=== PATIENT | male | born 1980 | race Hispanic/Latino ===

== ENCOUNTER 2018-12-06 06:44 | Observation (INO) | payer MEDICAID, OTHER ==
[~2018-12-06] VITALS: Ht 170.2 cm; Wt 95.2 kg
--- NOTE | 2018-12-06 08:30 | NUR ---
PT ARRIVED TO FLOOR VIA DIRRECT ADMIT IN WHEELCHAIR. 1 GAURD AT SIDE. [address] IVSTARTED IN RIGHT UPPER ARM AND LR INFUSING AT 125ML/HR. PT REPORTS PAIN 02/22. ORIENTED TO ROOM AND CALL LIGHT. VITAL SIGNS TAKE AND STABLE. DENIES FURTHER NEEDS. CALL LIGHT IN REACH
[2018-12-06] MEDS ORDERED: ZESTRIL40 MG PO (08:44)
[2018-12-06] MEDS ORDERED: GLUCOPHAGE850 MG PO (08:44)
[2018-12-06] MEDS ORDERED: GLUCOPHAGE500 MG PO (08:45)
--- NOTE | 2018-12-06 11:40 | NUR ---
DR WILLS TO BEDSIDE TO DISCUSS PLAN OF CARE. PT AGREEABLE. LR BOLUS STARTED. 1 GAURD AT BEDSIDE. [address] SCD'S ON.
--- NOTE | 2018-12-06 13:42 | NUR ---
PT REPORTING 7/10 PAIN. PRM PAIN MEDICAITON GIVEN. 1 GAURD AT BEDSIDE. [address] MOUTH SWABS PROVIDED. DENIES FURTHER NEEDS. CALL LIGHT IN REACH.
--- NOTE | 2018-12-06 15:05 | NUR ---
DR WILLS CALLED TO VERIFICATION FOR PT TO TAKE HOME MEDICATIONS. VERBAL TELEPHONE ORDERS TO HOLD METFORMIN, GIVE LISINOPRIL 40MG NO AND DAILY. START BLOOD SUGAR CHECKS Q6H WITH LOW SLIDING SCALE INUSLIN. READ BACK FOR VERIFICATION.
--- NOTE | 2018-12-06 18:14 | NUR ---
DIRRECT ADMIT. PAIN WELL CONTROLLED WITH IV MORPHINE. PAIN IN RIGHT SIDE. LR AT 125 INFUSING. BLOOD SUGARS Q6H. INDEPENDENT IN ROOM WITH GAURD AT BEDSIDE. CLEAR LIQUIDS TIL MIDNIGHT THEN NPO FOR SURGERY TOMORROW. 4 POINT SHACKLES. NO N/V AT THIS TIME.
--- NOTE | 2018-12-06 20:35 | NUR ---
DIRECTOR ORACLE ROUNDING NOTE. PT RESTING IN BED, DENIES QUESTIONS. ASKS FOR MORE JELLO, LET PRIMARY RN KNOW. GUARD AT BEDSIDE. CALL LIGHT IN REACH.
--- NOTE | 2018-12-06 21:30 | NUR ---
PROVIDED PATIENT WITH HS MEDICAITONS, CBG 89 NO INSULIN NEEDED. PROVIDED WITH JELLO AND BROTH. FULL BODY ASSESMENT DONE. CUFF RESTRAINTS ON ALL FOUR EXTREMITIES, SKIN INTACT AND WNL. URINATING WELL, COLOR APPEARS CLEAR DARK YELLOW.
--- NOTE | 2018-12-06 22:38 | NUR ---
Patients VS and I&Os were completed. He requested broth and jello cups. He was satisfied. BS check was 84.
--- NOTE | 2018-12-06 23:00 | NUR ---
ADMINISTERED 2MG IV MORPHINE FOR PAIN 5/10 ON PAIN SCALE. PATIENT ENCOURAGED TO HAVE JELLO NOW, NPO AT MIDNIGHT. PROVIDED PATIENT WITH ICE WATER AND JELLO. PATIENT RESTING BACK IN BED, RESTRAINED WITH HANDCUFFS, SECURITY GAURD AT BEDSIDE, NO CHANGES TO SKIN.
--- NOTE | 2018-12-07 01:59 | NUR ---
CBG [address] WILLS, NEW ORDER FOR 1/2 AMP OF D5 DEXTROSE AND TO CHANGE FLUIDS TO D5LR @ 125 ML/HR. RECHECK CBG IN HALF HOUR.
--- NOTE | 2018-12-07 04:35 | NUR ---
RECHECKED CBG 119, PATIENT NON-SYMPTOMATIC. WAKES EASILY, STATES " I DIDN'T FEEL ANY DIFFERENT WITH BLOOD SUGAR THAT LOW." PAIN WELL CONTROLLED. PATIENT RESTING BACK IN BED. GUARD AT BEDSIDE.
--- NOTE | 2018-12-07 05:42 | NUR ---
PATIENT BLOOD SUGAR TRENDED, LOWEST CBG 68, CALL TO DR. WILLS NEW ORDERS TO FOLLOW. PATIENT RESTING WELL THROUGHOUT NIGHT, PAIN WELL CONTROLLED. HAS BEEN NPO SINCE MIDNIGHT. VOIDING WELL. PLAN FOR SURGERY AT 0900. VS STABLE.
--- NOTE | 2018-12-07 06:20 | NUR ---
VS and I&Os complete.
--- NOTE | 2018-12-07 07:48 | NUR ---
REPORT RECEIVED FROM PROGRAM EVALUATION CONSULTANT RN. PT IN BED WITH EYES CLOSED. 1 GAURD AT BEDSIDE. [address] D5LR @ 125 INFUSING WNL. BLOOD SUGAR CHECKED THIS AM AND WAS 95. CALL LIGHT IN REACH.
--- NOTE | 2018-12-07 08:13 | NUR ---
PATIENT IS IN BED, PATIENT DID THE SURGICAL WIPEDOWN ON HIMSELF AND WAS GIVEN A FRESH GOWN.
--- NOTE | 2018-12-07 08:58 | NUR ---
PT OFF FLOOR TO SURGERY.
--- NOTE | 2018-12-07 11:35 | NUR ---
12/07/18 1135 Krystle Samaniego 1117- PT ARRIVES TO PACU ON 10 L VIA MASK. PT NONRESPONSIVE TO VERBAL STIMULUS . SATS 100%. VSS. BLOOD SUGAR `134 POSTOP. PT HAD GENERAL ANESTHESIA WITH LOCAL INJECTED AT 4 TROCH SITES. DEMARCO DRAIN IN PLACE. 1120- PT RESPONSIVE TO VERBAL STIMULUS AND DENIES APIN. NO NAUSEA. PT TITRATED TO 6 L VIA MASK WITH FOLLOW UP SATS >90%. 1126- PT TITRATED TO RA WITH FOLLOW UP SATS>90%. PT VERBALIZES 8/10 BURNING PAIN IN ABDOMEN BUT FALLS ABCK ASLEEP EASILY. VSS.
--- NOTE | 2018-12-07 12:00 | NUR ---
PT ARRIVED TO FLOOR VIA STRETCHER. 1 GAURD AT SIDE., [address] PT OOB TO VOID. DEMARCO SITE DRESSING SATURATED. CHANGED GAUZE AND TAPE. CHANGED PT GOWN D/T DRAINAGE. PT REPORTING PAIN 02/22. ICE PACK AND PRN PAIN MEDICATION PROVIDED. INCENTIVE SPEROMETER EDUCATION DONE AND AT BEDSIDE. SCD'S IN PLACE. LAP SITES X4 WITH STERI STRIPS IN PLACE. SMALL AMOUNT OF SERSANG DRAINAGE. DEMARCO DRAIN EMPTIED FOR 40 ML SEROSANG FLUID. NO BILE PRESENT. BOWEL TONES ACTIVE. PILLOW PROVIDED FOR COUGHING AND DEEP BREATHING. PT TOLERATING PO INTAKE WITH NO N/V. CALL LIGHT IN REACH.
--- NOTE | 2018-12-07 13:00 | NUR ---
VITALS TAKEN AND WNL. SITE ASSESSED WITH MORE DRAINAGE FROM DEMARCO SITE. GAUZE SATURATED. REINFORCED WITH AN ABD PAD AND TAPE. ABDOMEN TENDER TO TOUCH. STERI STIPS IN PLACE. D5LR AT 125 INFUSING. CALL LIGHT IN REACH.
--- NOTE | 2018-12-07 14:30 | NUR ---
VITALS TAKEN AND STABLE. PT GIVEN WIPE DOWN. BLOOD PRESSURE MEDICAITONS ADMINISTERED. PT OUT IN HALLS TO AMBULATE WITH GAURD AT SIDE. TOLERATING WELL.
--- NOTE | 2018-12-07 15:41 | NUR ---
VITALS TAKEN. PT WITH INCREASED PUSLE ON 128. PT REPORTING 7/10 PAIN. 3MG MOR[address]INE GIVEN. DR WILLS NOTIFIED.
--- NOTE | 2018-12-07 15:54 | NUR ---
PT UP AMBULATING IN HALLS.
--- NOTE | 2018-12-07 16:40 | NUR ---
HEART RATE CHECK AT 109. PT REPORTS DECREASE IN PAIN AFTER MORPHINE. PAIN REPORTED TOLERABLE.
--- NOTE | 2018-12-07 17:20 | NUR ---
PT SITTING AT SIDE OF BED. REPORTS PAIN OF 5/10. DENIES NEED FOR PAIN MEDICAITON. DEMARCO EMPTIED FOR 110 COLOR MORE SAGUINEOUS.PT DENIES TIGHTNESS OR BLOATED FEELING. DRESSING TO DEMARCO CHANGED D/T SATURATION. LAP SITES X4 WNL AND DRY. HEART RATE CHECKED AND IS 118, BLOOD PRESSURE WNL.
--- NOTE | 2018-12-07 17:50 | NUR ---
DEMARCO EMPTIED FOR 110 MORE. SANGUINEOUS IN COLOR. PT DENEIS PAIN, BLOATING OR TIGHTNESS TO ABDOMEN.
--- NOTE | 2018-12-07 18:00 | NUR ---
DEMARCO EMTIED, APPEARS MORE SANGUINEOUS. PT DENEIS TIGHTNESS, PAIN 5/10, DENIES BLOATING. VITALS WNL EXCEPT HEART RATE 118. DR WILLS CALLED. NO ANSWER.
--- NOTE | 2018-12-07 18:37 | NUR ---
IN TO ASSESS PT. REPORTS PAIN 5/10 IN RIGHT UPPER QUADRENT. REPORTS IT IS MAKING IT HARD TO TAKE A DEEP BREATH. DEMARCO DRAINED FOR 50. DR WILLS CALLED BACK TO FLOOR AND NOTIFIED.
--- NOTE | 2018-12-07 18:49 | NUR ---
PATIENT STANDING UP IN ROOM, GUARD IN ROOM. PATIENT IN PAIN, RN NOTIFIED. CALL LIGHT IN REACH. NO FURTHER NEEDS AT THIS TIME.
--- NOTE | 2018-12-07 19:00 | NUR ---
PT REPORTING 7/10 PAIN IN RUQ. PRN PAIN MEDICATION GIVEN. WATER REFRESHED. DENIES FURTHER NEEDS.
--- NOTE | 2018-12-07 19:40 | NUR ---
DR WILLS CALLED AND UPDATED ON CBC RESULTS. PLATLETS CANCELED. LAB NOTIFIED.
--- NOTE | 2018-12-07 21:31 | HP ---
[facility] [address], [place] [address] Signed ADMISSION DATE: 12/06/2018 REASON FOR ADMISSION: Probable acute calculous cholecystitis. HISTORY OF PRESENT ILLNESS: This 38-year-old man is a prisoner at the [facility]. He has been incarcerated there for 2 months with some amount of time remaining. He was found to have increasing right upper abdominal pain and was sent to the [facility] for evaluation of this with gallbladder ultrasound. I was called while in the operating room today that he was found to have tenderness in right upper abdomen and multiple gallstones consistent with acute cholecystitis. On that basis, direct admission to the hospital was advised. The patient has had some amount of fluid administration and has been made n.p.o. Lab studies initiated. He was found to have a white count of 7.2 with hematocrit of 31.2 and platelets 212,000. Electrolytes normal. Liver enzymes are showing normal enzymes, so his bilirubin is elevated to 2.3. His albumin is 3.4. The patient says he has had pain for the past week or more in the right upper abdomen. This is worse after eating, but rather unbearable now. He does have family history of biliary disease in his father. PAST SURGICAL HISTORY: Includes left ankle operation, circumcision, and tonsillectomy. He has never had abdominal surgery. He denies any chronic pain problems. He does have prior history of hypertension and diabetes. MEDICATIONS: At admission include lisinopril 40 mg daily and metformin 500 mg p.o. at bedtime and 850 mg in the daytime. SOCIAL HISTORY: He is incarcerated at the [facility]. No other details are known to me. REVIEW OF SYSTEMS: Denies any shortness of breath or chest pain. He has had no dysphagia or dysuria. Electronically Signed By: RADHA WILLS MD 12/07/18 4008 PATIENT NAME: DAISY FRAZIER HISTORY AND PHYSICAL DATE OF : 80 REPORT #: [id number] PHYSICIAN: RADHA WILLS MD PCP: KISHOR SHAVER REPORT IS CONFIDENTIAL AND NOT TO BE RELEASED WITHOUT AUTHORIZATION [facility] [address], [place] [address] Signed Denies any hematemesis or blood per rectum. PHYSICAL EXAMINATION: GENERAL: A pleasant man, who looks to be in mild discomfort. HEENT: Mucous membranes are slightly dry. Trachea is midline. CHEST: Clear. HEART: Regular without murmur. ABDOMEN: Somewhat obese, but soft. There is tenderness in the right upper abdomen. No palpable mass. EXTREMITIES: Show no clubbing, cyanosis, or edema. LABORATORY STUDIES: As previously noted. Ultrasound images were reviewed confirming what appears to be layering gallstones and thickened gallbladder wall. Interpretation by the radiologist described mobile sludge and stones with thickened edematous wall. There was some question regarding cirrhosis, though that is not entirely certain. The liver does have a coarsened echotexture. There are some nodular changes. ASSESSMENT AND PLAN: The patient may well have acute cholecystitis with gallstones. It is uncertain regarding the cirrhosis, though that is problematic. It appears not to have clinical evidence of ascites particularly. It is noted that cholecystectomy in the setting of cirrhosis does portend high risks of bleeding and other issues. Notably, he is somewhat anemic with hematocrit of 31.2, but platelet count of 112,000. It is not terribly likely has portal hypertension, though it is a possibility. Certainly, if he has cirrhosis itself. I planned to anticipate operation later this afternoon after further fluid evaluation of administration and evaluation with the radiologist regarding the ultrasound findings. Discussed with the patient risks of bleeding, infection, bile duct injury, need for open procedure, and other unforeseen complications depending on findings. He understands wished to proceed. Radha Wills MD /MODL /[id number] Electronically Signed By: RADHA WILLS MD 12/07/18 2131 PATIENT NAME: DAISY FRAZIER HISTORY AND PHYSICAL DATE OF : 80 REPORT #: [id number] PHYSICIAN: RADHA WILLS MD PCP: KISHOR SHAVER REPORT IS CONFIDENTIAL AND NOT TO BE RELEASED WITHOUT AUTHORIZATION [address] [address] Signed cc: [facility] Copies: ~ Electronically Signed By: RADHA WILLS MD 12/07/18 2131 PATIENT NAME: QUINTON DAISY BYRNE HISTORY AND PHYSICAL DATE OF : 80 REPORT #: [id number] PHYSICIAN: RADHA WILLS MD PCP: KISHOR SHAVER REPORT IS CONFIDENTIAL AND NOT TO BE RELEASED WITHOUT AUTHORIZATION
--- NOTE | 2018-12-07 21:31 | OR ---
[facility] [address], [place] [address] Signed DATE OF OPERATION: 12/07/2018 SURGEON: Radha Wills MD PREOPERATIVE DIAGNOSES: 1. Acute calculous cholecystitis. 2. Probable cirrhosis of the liver. 3. Thrombocytopenia and anemia (platelet count 85,000, hematocrit 28.1). POSTOPERATIVE DIAGNOSES: 1. Acute calculous cholecystitis. 2. Probable cirrhosis of the liver. 3. Thrombocytopenia and anemia (platelet count 85,000, hematocrit 28.1). 4. Advanced nodular cirrhosis of the liver. PROCEDURE PERFORMED: Laparoscopic cholecystectomy was attempted, but failed; cholangiogram, prolonged, complicated, difficult. ANESTHESIA: General endotracheal, Radha Alvarez CRNA, and local 10 mL of 0.25% Marcaine with epinephrine. INDICATION: This 38-year-old man is incarcerated at the [facility]. He was transported by nursing home personnel to [facility] for persistent right upper abdominal pain for a gallbladder ultrasound, which was performed and found to have multiple gallstones, thickened gallbladder wall, and obvious acute cholecystitis. He was directly admitted from the radiology department for further evaluation and care. He has been attended to by his pension manager perpetually with continued application of manacles. He was noted initially to have a platelet count of 112,000 and hematocrit of 31.2. He does have tenderness in the right upper abdomen and obviously with acute cholecystitis. Close inspection of his ultrasound shows nodular changes of the liver, but no ascites. This has been closely reviewed with radiologist, Dr. Olmos. He has been fluid resuscitated, given intravenous antibiotics, and is now to undergo cholecystectomy by laparoscopic approach, possibly open. Patient does have a significant alcohol abuse history though he has been free of alcohol use for 2 months since he has been in nursing home. He does have family history of biliary disease in his father. He is admitted to undergo cholecystectomy; understands the risks of bleeding, infection, bile duct injury, need Electronically Signed By: RADHA WILLS MD 12/07/18 2131 PATIENT NAME: DAISY FRAZIER OPERATIVE REPORT DATE OF : 80 REPORT #: [id number] PHYSICIAN: RADHA WILLS MD PCP: KISHOR SHAVER REPORT IS CONFIDENTIAL AND NOT TO BE RELEASED WITHOUT AUTHORIZATION [facility] [address] [place] [id number] Signed for open procedure and need for possible transfusion given his thrombocytopenia and relative anemia. Understanding all this, he wished to proceed. FINDINGS: Indeed he had macronodular cirrhosis of the liver quite markedly. The gallbladder itself was chronically and acutely inflamed. The operation was prolonged, complicated, and difficult on the basis of extended time to safely accomplish cholecystectomy. Attempts at cholangiogram were unsuccessful due to a very small duct and local anatomic factors which made pursuing further cholangiography precarious. The gallbladder once opened showed marked inflammatory changes and multiple small gallstones. PROCEDURE: The patient was brought to the operating room, given a general endotracheal anesthetic. Mindful of his low platelet count of 85,000 and hematocrit of 28.2. All due care was taken in the course of intubation. Heparin was withheld for this morning's dose based on his thrombocytopenia. After satisfactory general endotracheal anesthesia, the manacles were removed and the abdomen was prepared with a chlorhexidine solution and draped sterilely. He had numerous tattoos of the abdominal wall. The infraumbilical incision was made and using an open Reinaldo cannula technique with meticulous hemostasis, pneumoperitoneum was achieved to a level of 14 mmHg with carbon dioxide gas. Intra-abdominal inspection showed no sign of ascites or carcinomatosis, but the liver was markedly involved with a diffuse cirrhotic process including large and small nodular changes. The gallbladder itself was acutely inflamed and distended. Three additional trocars were placed in usual configuration in the subxiphoid, right midclavicular, and right anterior axillary line. Given the stiffness of the liver, the gallbladder was not easy to elevate and also the gallbladder was markedly distended. On that basis, decompression was undertaken with a laparoscopic needle device allowing for better decompression of the gallbladder. The puncture site was grasped and elevated cephalad, but still not much elevation could be enjoyed due to the stiffness of the liver itself. An additional trocar was placed in the mid epigastric area, allowing for a fan retractor to sweep the duodenum and other organs medially to allow for better visualization. The gallbladder was elevated as much as able and retracted at the infundibulum and blunt and electrocautery dissection undertaken in a very meticulous way. Special care was taken to avoid bleeding. Given his thrombocytopenia and anemia and also the possibility of portal hypertension, which showed no overt manifestations on clinical examination. With various maneuvers, ultimately the triangle of Calot could be dissected. A somewhat fibrotic cystic duct was noted. It was rather small. A clip was applied across the gallbladder cystic duct junction. A partial choledochotomy was already noted in the cystic duct, which was extended. There was clear bile from the cystic duct. Given the short cystic duct, further manipulation of the duct to pass the catheter was deemed unwise. Dissection of the cystic duct more to the midline was undertaken as best could be to ascertain reliably viable cystic duct. As his overall medical situation was Electronically Signed By: RADHA WILLS MD 12/07/18 5851 PATIENT NAME: DAISY FRAZIER OPERATIVE REPORT DATE OF : 80 REPORT #: [id number] PHYSICIAN: RADHA WILLS MD PCP: KISHOR SHAVER REPORT IS CONFIDENTIAL AND NOT TO BE RELEASED WITHOUT AUTHORIZATION [facility] [address], [place] [address] Signed somewhat tenuous, it was deemed safest in this particular circumstance not to pursue further the idea of cholangiogram. On that basis, the cystic duct was triply clipped with the high-quality clip director speech and hearing. Subsequently, 0 PDS EndoLoop was applied to the cystic duct stump as well. The gallbladder was then dissected free in a retrograde fashion using electrocautery maintaining the avascular plane. There were 2 small vessels in the edge of the gallbladder which had profuse bleeding, which was easily secured with clips and electrocautery, but was indicative of possible portal hypertension as well. Further dissection of the gallbladder was undertaken in a retrograde fashion. The apex of the gallbladder had some additional impressive inflammation, for which a small portion of the back wall of the gallbladder was left in situ. The small black stones were noted to have spilled and these were suctioned free and maintained in the gallbladder as well. The gallbladder was then placed in an endobag and extracted through the infraumbilical port site, opened on the back table and found to have inflammatory change of the mucosa and multiple small black gallstones. There was no sign of malignancy. Irrigation was undertaken in subhepatic space. Excess irrigation fluid and any stone debris suctioned free entirely. Re-inspection of the reba hepatis showed no sign of bile leak or other problems. Nevertheless, some Myrtle was applied to the raw surface of the hepatic fossa and through right-sided trocar site, a 10 mm flat Marco drain was placed in the subhepatic space. It was later secured to the skin with nylon suture. The trocars were removed under direct visualization showing no sign of bleeding. The infraumbilical fascial incision was re-approximated with interrupted 0 Vicryl suture. The skin was then closed with interrupted 3-0 Vicryl. Steri-Strips were applied. The patient was ultimately extubated and transferred to recovery in good condition having suffered no complications. Sponge, needle, and instrument counts reported as correct x3. MD AYLEEN Rudolph/TONYAL /[id number] cc: ANA LUISA Jarvis Coutierier [facility] Electronically Signed By: RADHA WILLS MD 12/07/18 2131 PATIENT NAME: DAISY FRAZIER OPERATIVE REPORT DATE OF : 80 REPORT #: [id number] PHYSICIAN: RADHA WILLS MD PCP: KISHOR SHAVER REPORT IS CONFIDENTIAL AND NOT TO BE RELEASED WITHOUT AUTHORIZATION [facility] [address] [place] [address] Trevin Barrera [place] [address] Signed Copies: KISHOR SHAVER ~ Electronically Signed By: RADHA WILLS MD 12/07/18 2131 PATIENT NAME: QUINTON DAISY BYRNE OPERATIVE REPORT DATE OF : 80 REPORT #: [id number] PHYSICIAN: RADHA WILLS MD PCP: KISHOR SHAVER REPORT IS CONFIDENTIAL AND NOT TO BE RELEASED WITHOUT AUTHORIZATION
--- NOTE | 2018-12-07 22:00 | NUR ---
GOWN CHANGED, DRESSING REINFORCED, DEMARCO DRAIN CONTINUES TO DRAIN SEROSANGUINOUS BLOOD. NO C/O PAIN AT THIS TIME. 2 CUPS OF DIET POP GIVEN. DEMARCO EMPTIED. NO OTHER NEEDS AT THIS TIME.
--- NOTE | 2018-12-08 00:16 | NUR ---
PATIENT HAVING 7/10 RIGHT ABD PAIN, SOME RED DRAINAGE IN THE LOWER RIGHT CORNER OF THE REINFORCED ABD DRESSING. CAN'T VISUALIZE THE 4 LAB SITES UNDER THE REINFORCED DRESSING. DEMARCO DRAINED AGAIN AND THE DRAINAGE IS THE SAME. OFFICER REMAINS AT BEDSIDE HE HAS ALL SHIFT. PATIENT GIVEN 2 NORCO FOR HIS PAIN.
--- NOTE | 2018-12-08 02:30 | NUR ---
PATIENT IN BED WATCHING TV.
--- NOTE | 2018-12-08 04:00 | NUR ---
PATIENT RESTING QUITLY IN BE RESPIRATIONS REGULAR AND EVEN AT 16. EYES CLOSED. OFFICER AT BEDSIDE.
--- NOTE | 2018-12-08 06:23 | NUR ---
PATIENT WA UP MOST OF THE NIGHT. ONLY TOOK 2 NORCO FOR PAIN FOR THE NIGHT. DEMARCO STILL DRAINING SEROSANGINOUS FLUID. DRESSING STILL REINFORCED WITH A LITTLE DRAINAGE IN THE RIGHT LOWER CORNER.
--- NOTE | 2018-12-08 07:36 | NUR ---
REPORT RECEIVED FROM ROPE TIER RN. PT IN BED WITH EYES CLOSED. GAURD AT BEDSIDE. [address] RESPIRATIONS EQUAL AND NONLABORED.
--- NOTE | 2018-12-08 07:58 | NUR ---
GOT PATIENTS BLOOD SUGAR PATIENT WNTED TO ORDER BREKAFAST, PATIENT HAS BEEN IN AND OUT OF THE BATHROOM.
[2018-12-08] MEDS ORDERED: SPIRONOLACTONE25 MG PO (09:38)
[2018-12-08] MEDS ORDERED: FUROSEMIDE20 MG PO (09:38)
[2018-12-08] MEDS ORDERED: MOTRIN IB200 MG PO (09:39)
[2018-12-08] MEDS ORDERED: TYLENOL325 MG PO (09:39)
--- NOTE | 2018-12-08 09:54 | NUR ---
DR WILLS IN TO ROUND ON PT. PLAN FOR DISCHARGE TO SNF. QUESTIONS AND CONCERNS ADRESSED.
--- NOTE | 2018-12-08 19:43 | DS ---
[facility] [address], [place] [address] Signed ADMISSION DATE: 12/06/2018 DISCHARGE DATE: 12/08/2018 REASON FOR ADMISSION: This 38-year-old man is a [facility]. He has been incarcerated there for at least two months. He was found to have increasing abdominal pain, was sent to [facility] for gallbladder ultrasound under the direction of medical personnel at the custodial, including ANA LUISA Harrell. He was found in the radiology department to have marked tenderness in right upper abdomen and gallbladder finding showing thickened gallbladder wall and multiple gallstones and pericholecystic fluid consistent with acute cholecystitis. I was summoned as the on-call surgeon to admit the patient for acute cholecystitis. PAST MEDICAL HISTORY: Does include significant alcohol abuse in the past as well as diabetes and hypertension. PHYSICAL EXAMINATION: GENERAL: Showed a somewhat obese, man, who looked to be uncomfortable. HEENT: Mucous membranes are slightly dry. Trachea is midline. CHEST: Clear. HEART: Regular without murmur. ABDOMEN: Obese, but soft. There is tenderness in the right upper abdomen. No sign of palpable mass. There is no clinical appearance of ascites. HOSPITAL COURSE: His ultrasound was reviewed confirming what appeared to be layering gallstones and thickened gallbladder wall. Additionally, he was noted to have nodular changes of the liver, but without sign of ascites, proper. This was highly concerning for cirrhosis of course. His initial hematocrit was 31.2 with a platelet count of 112,000. He was fluid resuscitated, given intravenous antibiotics, and repeat evaluation showed a hematocrit of 28 with a platelet count of 85,000. Though he did not have ascites with nodular cirrhosis of the liver, this is certainly a complicating factor in the face of acute cholecystitis. On Friday, December 07, 2018, he underwent laparoscopy where he was found to have advanced cirrhosis of the liver, but acute calculous cholecystitis as well. Laparoscopic cholecystectomy was cautiously undertaken given the cirrhotic changes, but was accomplished safely. Due to anatomical factors, the cholangiogram could not be done, normally I would do that. Clips were applied to the cystic duct as was a PDS Endoloop device. A drain was placed as well. The operation was very difficult and prolonged Electronically Signed By: RADHA WILLS MD 12/08/18 194 PATIENT NAME: DAISY FRAZIER DISCHARGE SUMMARY DATE OF : [birth year] REPORT #: [id number] PHYSICIAN: RADHA WILLS MD PCP: KISHOR SHAVER REPORT IS CONFIDENTIAL AND NOT TO BE RELEASED WITHOUT AUTHORIZATION [facility] [address], [place] [address] Signed complicated on the basis of the heavy fibrotic and nodular liver, but was accomplished safely. Postoperatively, the drain showed serosanguineous fluid and some increasing fluid consistent with low-grade ascites formation. This is a common phenomenon following general anesthesia, the patients with cirrhosis, but without initial ascites. His platelet count today following operation was 134,000, hematocrit of 34.5. By time of discharge, his platelet count was 94,000 with hematocrit of 28.3. The drain was removed. His total bilirubin was 1.5 down from his admit of 2.3. Liver enzymes were normal. He is now eating well, has minimal incisional pain. The drain has been removed. It is anticipated he will be treated with Lasix qday and spironolactone q dayfor 5 days following operation. Further consideration of whether Lasix and spironolactone should be given will be dependent on clinical assessment for ascites. Discharge instructions include avoidance of lifting more than 20 pounds for the next 2 weeks. Shower is permitted. A watertight dressing is applied to the drain site. He will be seen in the custodial setting by medical personnel there, which will include ANA LUISA Harrell. I have planned to provide surgical followup in 4 weeks or so. DISCHARGE MEDICATIONS: Include spironolactone 25 mg p.o. q day x 5 days Lasix 20 mg p.o.q day x 5 days, ibuprofen 600 mg p.o. q.6 hours as needed for pain and Tylenol 325 mg p.o. q.4 hours as needed for pain. He will resume his usual medication of lisinopril 40 mg p.o. daily, metformin 850 mg p.o. daily and 500 p.o. at bedtime daily. DISCHARGE DIAGNOSES: 1. Acute calculous cholecystitis. 2. Advanced cirrhosis of the liver. 3. Postoperative mild ascites. 4. Diabetes mellitus. 5. Hypertension. Electronically Signed By: RADHA WILLS MD 12/08/18 194 PATIENT NAME: DAISY FRAZIER DISCHARGE SUMMARY DATE OF : [birth year] REPORT #: [id number] PHYSICIAN: RADHA WILLS MD PCP: KISHOR SHAVER REPORT IS CONFIDENTIAL AND NOT TO BE RELEASED WITHOUT AUTHORIZATION [place] [address] [place], [place] [address] Signed MD AYLEEN Rudolph/MODL /[id number] cc: [facility] ANA LUISA Jarvis Copies: KISHOR SHAVER ~ Electronically Signed By: RADHA WILLS MD 12/08/18 1943 PATIENT NAME: DAISY FRAZIER DISCHARGE SUMMARY DATE OF : 80 REPORT #: [id number] PHYSICIAN: RADHA WILLS MD PCP: KISHOR SHAVER REPORT IS CONFIDENTIAL AND NOT TO BE RELEASED WITHOUT AUTHORIZATION
== END 2018-12-08 11:55 | disposition home or self-care (01) ==
LOC: US 06:44 → MS 07:56
PROVIDERS: ADMIT Surgery
PROC: 0FT44ZZ Resection of Gallbladder, Percutaneous Endoscopic Approach (ICD-10-PCS; principal; 2018-12-07 09:00)
DX: K80.00 Calculus of gallbladder with acute cholecystitis without obstruction (principal); K74.60 Unspecified cirrhosis of liver; R18.8 Other ascites; E11.649 Type 2 diabetes mellitus with hypoglycemia without coma; I10 Essential (primary) hypertension; E66.9 Obesity, unspecified; D64.9 Anemia, unspecified; D69.6 Thrombocytopenia, unspecified; F10.10 Alcohol abuse, uncomplicated; Z79.899 Other long term (current) drug therapy; Z79.84 Long term (current) use of oral hypoglycemic drugs; Z83.79 Family history of other diseases of the digestive system; Z87.891 Personal history of nicotine dependence; Z68.32 Body mass index [BMI] 32.0-32.9, adult
CPT/HCPCS: 00790; 36415; 76705; 80053; 82150; 82247; 82465; 83615; 84100; 84478; 84550; 85025; 86850; 86900; 86901; 96361; 96372; 96374; 96375; 96376; G0378; J0330; J0690; J1100; J1644; J1815; J1885; J2250; J2270; J2405; J2704; J2765; J3010; J7120

== ENCOUNTER 2018-12-09 21:14 | Inpatient (IN) | payer OTHER ==
[~2018-12-09] VITALS: Ht 170.2 cm; Wt 97.2 kg
[~2018-12-09 21:14] MED LIST: FUROSEMIDE20 MG PO; GLUCOPHAGE500 MG PO; GLUCOPHAGE850 MG PO; MOTRIN IB200 MG PO; SPIRONOLACTONE25 MG PO; TYLENOL325 MG PO; ZESTRIL40 MG PO
--- OUTSIDE RECORDS SUMMARY | 2018-12-09 21:16 | XMS ---
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 John has no Care Guidelines for this patient. Monalisa VISIT COUNT (12 MO.) 1 JEY Lowe TOTAL 1 NOTE: Visits indicate total known visits. ED/UCC VISIT TRACKING (12 MO.) 12/09/2018 21:14 [facility] [place] TYPE: Emergency COMPLAINT: - DIZZY INPATIENT VISIT TRACKING (12 MO.) 12/06/2018 07:[address] 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
--- NOTE | 2018-12-10 00:30 | NUR ---
PT ADMITTED PER STRETCHER FROM ED. PT ACCOMPANIED BY DEPUTY AND HAS HAND CUFFS, ANKLE CUFFS IN PLACE. PT C/O SEVERE ABD PAIN. PAIN IS CRAMP LIKE. GIVEN 30MG TORRADOL IV WITH LITTLE RELIEF. ABD PRESSURE DONE 14. DR WILLS HERE.
--- NOTE | 2018-12-10 02:00 | NUR ---
PT HAD VERY LARGE LIQ BM, FEELS MUCH BETTER, PAIN BETTER.
--- NOTE | 2018-12-10 02:38 | NUR ---
AT 0235 COLLEEN FROM LAB WITH A CRITICAL LAB VALUE OF 5.2 LACTIC ACID. MD WILLS WAS CALLED JUST NOW. NO NEW ORDERS WERE GIVEN.
--- NOTE | 2018-12-10 03:30 | NUR ---
DR MCKEON CALLED AT 0315 RE BP CONT TO BE LOW. ORDER FOR LEVOPHED GTT RECIEVED. GTT STARTED AT 2MCG/MIN. PT GIVE SMALL SIP H2O FOR COMFORT.
--- NOTE | 2018-12-10 04:08 | NUR ---
LEVOPHED GTT INC TO 6MCG/MIN FOR BP 76/40. PT COMFORTABLE AT THIS TIME. DRAINAGE FROM R LAP WOUND HAS DECREASED, GAUZE SPONGES WERE SATURATED ON ADMISSION TO DEPT.
--- NOTE | 2018-12-10 04:40 | NUR ---
LEVOPHED TO 8MCG/MIN FOR SYST 88
--- NOTE | 2018-12-10 06:04 | NUR ---
PT ASKING IF HE CAN HAVE SOMETHING TO HELP HIM RELAX. GIVEN 1MG ATIVAN IV. REMAINS ON LEVOPHED AT 8MCG/MIN.
--- NOTE | 2018-12-10 06:17 | NUR ---
DR WILLS GIVEN UPDATE OF PT STATUS. WILL DC NGT.
--- NOTE | 2018-12-10 06:47 | NUR ---
DR WILLS WOULD LIKE TO TRY TO TITRATE LEVOPHED OFF, TO 7MCG/MIN. PT STOOD BRIEFLY TO HAVE WAIST CHAINS BACK IN PLACE. HR TO 147 THEN BACK TO 120'S AFTER GETTING BACK TO BED. NGT DC'D WITH PROBLEM.
--- NOTE | 2018-12-10 08:07 | NUR ---
DR. WILLS NOTIFIED OF PT'S WBC AND POTASSIUM. ORDER REC'D TO CHECK A MAG LEVEL.
--- NOTE | 2018-12-10 08:21 | NUR ---
ASSESSMENT COMPLETE AT THIS TIME. PATIENT HAS AN OFFICER AT BEDSIDE AND PATIENT IS IN HANDCUFFS, CHAINS AROUND HIS BELLY, AND ANKLE CUFFS. HR 102-110 CURRENTLY. LAST BP 89/53. PT REMAINS ON LEVOPHED AT 7 MCG/MIN, INFUSING INTO RIGHT AC IV SITE. BOTH IV SITES ARE 18 G AND FLUSH AND PULL BACK BLOOD EASILY. PT ASKING "WHEN CAN I HAVE WATER?" AND PLAN OF CARE DISCUSSED WITH PATIENT REGARDING HIS NEED TO STAY NPO AT THIS TIME. SALCEDO DRAINING CONCENTRATED URINE. LUNG SOUNDS CLEAR. ABDOMINAL SOUNDS PRESENT. LAP SITES ARE WELL HEALING, NON RED. LAP SITE OVER UMBILICUS HAS SMALL AMOUNT OF SEROUS DRAINAGE NOTED. PT IS DROWSY, BUT AWAKENS APPROP AND ANSWERS QUESTIONS CORRECTLY. CONTINUE TO MONITOR CLOSELY.
--- NOTE | 2018-12-10 09:03 | NUR ---
DR. WILLS IN TO SEE PATIENT. MAG LEVEL 1.3 - 4 GM IV MAG ORDER REC'D. PT UPDATED ON PLAN OF CARE BY DR. WILLS. PATIENT CONTINUES TO REST AT THIS TIME.
--- NOTE | 2018-12-10 09:32 | NUR ---
STARTED MAGNESIUM RIDER. PATIENT IS RESTING WITH EYES CLOSED. GAURD AT BEDSIDE. NO OTHER NEEDS AT THIS TIME.
--- NOTE | 2018-12-10 10:30 | NUR ---
LEVOPHED TURNED DOWN TO 5 MCG/MIN.
--- NOTE | 2018-12-10 12:06 | NUR ---
LEVOPHED TURNED DOWN TO 3 MCG/MIN AT THIS TIME. URINE OUTPUT LAST HOUR WAS 105 ML. IVF CONTINUE AT 125 ML/HR. LABS TO BE DRAWN NOW. PT GIVEN SWAB FOR HIS MOUTH. 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 HR 112. CONTINUE TO MONITOR.
--- NOTE | 2018-12-10 13:10 | NUR ---
PATIENT TO BE TAKEN DOWN FOR HYDA SCAN AT THIS TIME WIHT RN ESCORT AND ANESTHESIOLOGISTS' ASSISTANT. PT REMAINS ON LEVOPHED AT 3 MCG/MIN. IVF CONTINUE AT 125 ML/HR. CONTINUE BHAVIK ONITOR.
--- NOTE | 2018-12-10 14:58 | NUR ---
PATIENT BACK FROM CT SCAN AND IN BED. LEVOPHED CONTINUES AT 3 MCG/MIN. PT GIVEN SWAB FOR MOUTH. PT'S RIGHT ABDOMINAL GAUZE DRESSING COVERING HIS SITE WHERE HIS DRAIN WAS IS NOW DRAINING SEROUS FLUID. THIS WAS NOT HARDLY DRAINING EARLIER, BUT IS NOW DRAINING A FAIRLY GOOD AMOUNT. SALCEDO EMPTIED AND TEA COLORED URINE REMAINS. IVF CONTINUE AT 125 ML/HR. CONTINUE TO TRY TO ATTEMPT TO TITRATE LEVOPHED DOWN TOLERATED. OFFICER REMAINS IN ROOM. CSM CHECKED X 4 EXT. HR REMAINS GREATER THAN 100, M OSTLY IN THE 110s. LAST BP 103/64. CONTINUE TO MONITOR. PT DENIES PAIN IN ABDOMEN, BUT DOES NOT PAIN IN LOW BACK AND LOW ABDOMINAL AREA FROM LAYING IN BED TOO LONG.
--- NOTE | 2018-12-10 15:01 | NUR ---
LEVOPHED PLACED IN STANDBY AT THIS TIME. LAST B P 117/68 (79).
--- NOTE | 2018-12-10 15:41 | NUR ---
PATIENT BP 82/51 (59) AND LEVOPHED GTT STARTED AGAIN AT 3 MCG/MIN. IV TYLENOL STARTED BASED ON PATIENT REPORT OF 5/10 PAIN IN HIS BACK.
--- NOTE | 2018-12-10 15:43 | NUR ---
PATIENT LAYING IN SEMI-FOWLERS IN BED WITH PILLOW CUSHIONED UNDER HIS SHOULDERS. PATIENTS IV SITE IN LAC REDRESSED AND BLOOD PRESSURE CUFF ROTATED TO HIS RIGHT ARM. IV ACETAMINOPHEN INFUSING AT 400 MLS/HR AND ABX PAUSED DURING THIS TIME. PATIENT STATES HE "FEELS COLD" AND IS PROVIDED WITH A WARM BLANKET. HIS TEMPERATURE IS 98.7 DEGREES. DERMATOLOGY SPECIALIST AT BEDSIDE. PATIENT DENIES ANY FURTHER NEEDS AT THIS TIME.
--- NOTE | 2018-12-10 16:16 | NUR ---
LEVOPHED TURNED DOWN TO 2 MCG/MIN AT THIS TIME. LAST BP 104/55. PT RESTING WITH EYES CLOSED CURRENTLY.
--- NOTE | 2018-12-10 16:56 | NUR ---
PATIENT BP 92/52 (60) AND LEVOPHED GTT TITRATED DOWN TO 1 MCG/MIN. HR REMAINS IN THE LOW 100'S. PATIENT SLEEPING IN BED IN SEMI-FOLWERS POSITION. ASSESSMENT COMPLETED AND ABDOMINAL DRESSING CLEAN, DRY, AND INTACT. INTERN PRODUCT MARKETING MANAGER REMAINS IN ROOM AT BEDSIDE.
--- NOTE | 2018-12-10 17:08 | NUR ---
PATIENT BP 103/55 (64) AND LEVOPHED GTT PUT ON STANDBY. WILL CONTINUE TO MONITOR.
--- NOTE | 2018-12-10 17:38 | NUR ---
PATIENT BP 69/42 (49) AND LEVOPHED GTT TITRATED TO 3 MCG/MIN. MANUAL BP OF 80/50 TAKEN. PATIENT STATES HE DOES NOT FEEL DIZZY OR LIGHTHEADED. UNABLE TO STATE HIS BASELINE BP. AUTOMATIC BP TAKEN WITH A READING OF 91/59 (66). PATIENT CONTINUING TO VOID DARK, TEA-COLORED URINE. WILL CONTINUE TO MONITOR.
--- NOTE | 2018-12-10 18:27 | NUR ---
PATIENT RETURNED TO ROOM FROM [facility]IA [facility]ITAL BED. POLICE ESCORT TO AND FROM PROCEDURE. PATIENT LEVOPHED TITRATED TO 5 MCG/MIN DUE TO HYPOTENSION. HR REMAINS IN THE HIGH 90'S. NEW BAG OF IV D5LR HUNG AND RUNNING AT 125 MLS/HR. ABX CONTINUE INFUSING. PATIENT GIVEN BED BATH AND NEW LINENS. PATIENT BP 117/60 (73) UPON RETURNING TO THE ROOM. PATIENT PROVIDED WITH WARM BLANKET AND ORAL CARE. PATIENT DENIES ANY FURTHER NEED AT THIS TIME. CASH GRAIN FARMER AT BEDSIDE.
--- NOTE | 2018-12-10 19:00 | NUR ---
PATIENT BP 113/60 (71) AND LEVOPHED GTT TITRATED TO 3 MCG/MIN. HR REMAINS IN THE LOW 100'S. WILL CONTINUE TO MONITOR.
--- NOTE | 2018-12-10 19:15 | EKG ---
[facility] [address] [place], [place] [address] Signed Sinus tachycardia Otherwise normal ECG Confirmed by MARIELY STACY MD ([id number]) on 12/10/2018 7:15:04 PM Electronically Signed By: MARIELY STACY MD 12/10/18 1915 PATIENT NAME: ALCANTARADAISY WALDRON Electrocardiogram DATE OF : 80 PHYSICIAN: MARIELY STACY MD REPORT #: [id number] REPORT IS CONFIDENTIAL AND NOT TO BE RELEASED WITHOUT AUTHORIZATION
--- NOTE | 2018-12-10 19:25 | NUR ---
COPIOUS AMOUNT OF SEROUS FLUID NOTED FROM RIGHT LOWER OLD DEMARCO SITE. NEW CHUX PLACED UNDER PATIENT. PATIENT ASKING ABOUT PLAN AND WANTING TO KNOW THE RESULTS OF THE SCAN. PT UPDATED THAT WE WILL INFORM HIM SOON WE KNOW. AIRPORT RAMP ATTENDANT REMAINS IN ROOM.
--- NOTE | 2018-12-10 20:11 | NUR ---
AWAKE, ALERT. DR WILLS IN TO SEE PT. GIVEN WATER ABLE TO START CL LIQ AND SEBLE WELL. LEVOPHED GTT OFF BP122/69. PT C/O PAIN AT INCISIONAL SITE 12/23, REQUESTING SMALL AMT MORPHINE. DISCUSSED WITH DR WILLS AND WILL TRY IV TYLENOL FIRST. OLD DRAIN SITE RUQ CONT TO DRAIN SEROUS FLUID. ABD IS SOFT.
--- NOTE | 2018-12-10 21:56 | NUR ---
DR STACY IN TO SEE PT. DRAIN WOUND RUQ DRSG OFF, FLUFFS SATURATED WITH PINK SEROUS FLUID. WHEN WOULD CULTURED VERY LITTLE FLUID COULD BE EXPRESSED AT THIS TIME. WOUND COVERED WITH FLUFFS AND ABD. PT CONT TO HAVE INCISIONAL PAIN AT 5-6/10 . WILL GIVEN ONE DOSE OF 2MG MORPHINE IV AND THEN TRY PO PAIN MED LATER. TAKING WATER AND JELLO WITHOUT PROBLEM.
--- NOTE | 2018-12-10 22:36 | NUR ---
RESTING, VISITING WITH OFFICER IN ROOM. STATES PAIN IS BETTER. HAS BEEN PASSING GAS.
--- NOTE | 2018-12-10 23:47 | NUR ---
REPOSITIONED IN BED. REQUESTING MORE WATER, JUICE AND JELLO. NO C/O. DRSG TO DRAIN SITE DRY AND INTACT.SKIN UNDER CUFFS X IS INTACT.
--- NOTE | 2018-12-11 04:15 | NUR ---
CALLED BY PT, DRAIN WOUND HAD LEAKED VERY LARGE AMT SEROSANG FLUID SATURATING DRS, GOYOVANA AND CHUElvin. DRSG AND LINEN CHANGED. GIVEN WARM BLANKET. REQUESTING SOMETHING FOR LAP SITE DISCOMFORT, GIVEN 500MG IV TYLENOL.
--- NOTE | 2018-12-11 06:19 | NUR ---
SLEEPING OFF AND ON. DRSG DRY AT THIS TIME. HAS HAD DEPUTY IN ATTENDENCE AT ALL TIMES.
--- NOTE | 2018-12-11 07:57 | NUR ---
PATIENT UP TO BEDSIDE COMMODE, INCONTINENT BM. STOOL SAMPLE COLLECTED FOR ANALYSIS. PATIENT AMBULATED WITH ONE PERSON SBA TO CHAIR FOR BREAKFAST. PATIENT EDUCATED THAT HIS BP IS IMPROVING AND THE PLAN OF CARE WILL BE TO SPEND SOME TIME SITTING UP TODAY. NEW LINENS AND GOWN PROVIDED FOR PATIENT. ASSESSMENT COMPLETED. PATIENT LUNG SOUNDS CLEAR AND HYPOACTIVE BOWEL TONES. CLEAR LIQUID TRAY ORDERED FOR BREAKFAST. PATIENT SITTING UP IN CHAIR, DENIES ANY FURTHER NEED AT THIS TIME. LAWN TECHNICIAN IN ROOM.
--- NOTE | 2018-12-11 08:03 | NUR ---
STOOL SAMPLE TESTED FOR POSITIVE WITH GUAC TEST. PATIENT EDUCATED TO EXAMINE STOOL AND LOOK FOR BLACK, BURGUNDY, OR CRANBERRY COLORED STOOL. PATIENTS ABDOMINAL DRESSING CHANGED AND PATIENT EDUCATED TO ALERT RNs WHEN HE FEELS IT GETTING SATURATED. WILL CONTINUE TO MONITOR.
--- NOTE | 2018-12-11 09:15 | NUR ---
PATIENT UP TO COMMODE, STATES HE FEELS THE "URGE TO POOP." PATIENT UNABLE TO HAVE A BOWEL MOVEMENT. PATIENT STATES HE IS HAVING PAIN IN HIS ABDOMINAL INCISION AND IS GIVEN PRN NORCO. PATIENT AMBULATED BACK TO BEDSIDE CHAIR AND DENIES ANY FURTHER NEEDS AT THIS TIME.
--- NOTE | 2018-12-11 09:20 | NUR ---
DR. WILLS CALLED TO UPDATE ON PATIENT. ORDER REC'D TO GIVE REPLACEMENT IV POTASSIUM AND TO REMOVE SALCEDO CATHETER, WELL ADVANCE TO REGULAR DIET.
--- NOTE | 2018-12-11 11:00 | NUR ---
PATIENT SALCEDO D/C'd AND PATIENT EDUCATED REGARDING IMPORTANCE OF URINATING WITHIN THE NEXT SIX HOURS. WILL MONITOR. PATIENT IV SITE IN LAC D/C'd, CATHETER TIP INTACT. PATIENT ABDOMINAL DRESSING SATURATED AND A COLOSTOMY BAG PLACED IN ORDER TO COLLECT ANY DRAINAGE. NEW GOWN AND WARM BLANKET PROVIDED. PATIENT AMBULATED BACK TO BED IN HIGH FOWLERS POSITION. FLUIDS AND POTASSIUM CONTINUE INFUSING. PATIENT DENIES ANY FURTHER NEEDS AT THIS TIME.
--- NOTE | 2018-12-11 11:16 | HP ---
[facility] [address], [place] [address] Signed ADMISSION DATE: 12/09/2018 REASON FOR ADMISSION: Sepsis and cecal fluid and dilation, recent laparoscopic cholecystectomy without cholangiogram, and cirrhosis. HISTORY OF PRESENT ILLNESS: This 38-year-old white man is a prisoner at [facility]. He was admitted by me through the emergency room on December 06, 2018, with findings consistent with cholecystitis. He was incidentally noted to have cirrhosis, which was not previously known. He was noted to have a white count of only 7.2 with hematocrit of 31.2 and platelets of 212,000 at the time of his presentation. His liver enzymes showed no abnormality other than bilirubin elevated to 2.3 with an albumin of 3.4. On December 07, 2018, he underwent laparoscopy, where he was confirmed to have significant cirrhosis of the liver, but no gross evidence of ascites. His preoperative platelet count was 85,000, hematocrit 28.1. With all due care, laparoscopic cholecystectomy was performed. Cholangiogram was not able to be done due to a small cystic duct. Gallbladder itself appeared subacutely inflamed. A drain was placed at the time of operation. He had prompt improvement following operation. The drain was placed, did drain ascites fluid, but no bile leak or other problem of that sort. Development of ascites was considered likely considering general anesthesia with the level of cirrhosis that he was found to have. His hematocrit and platelet count stabilized postoperatively and yesterday was noted to be with hematocrit 28.3 with white count of 8.6 and platelets of 94,000. He was discharged yesterday. He returned today this evening with abdominal pain, some distention, and sensation of needing bowel movement and unable to do that during the course of the day. It is not entirely clear how much he ate, but he was eating at home. He was found to have hypertension by Dr. Kimball, emergency room physician, with a systolic pressure of 76 and a heart rate of 111 or so. He was given 3 L of normal saline and is on fourth liter of Ringer lactate solution. Current blood pressure is [address] scan was performed, which did confirm his recent cholecystectomy and a small amount of ascites in the right upper abdomen and pelvis was noted. There is no focal fluid collection or obvious abscess. Small bowel showed no evidence of obstruction. I subsequently spoke with Dr. Pa, the teleradiologist regarding the findings. Not Electronically Signed By: ARDHA WILLS MD 12/11/18 1116 PATIENT NAME: DAISY FRAZIER HISTORY AND PHYSICAL DATE OF : 80 REPORT #: [id number] PHYSICIAN: RADHA WILLS MD PCP: KISHOR SHAVER REPORT IS CONFIDENTIAL AND NOT TO BE RELEASED WITHOUT AUTHORIZATION [facility] [address], [place] [address] Signed mentioned was gastric dilatation and esophageal and possibly gastric varices. He did not feel that there was truly any colitis and the fluid within the cecum was considered moderate. There was no large hematoma or anything of that sort either. His past medical history does include diabetes for which he has taken metformin. His discharge medications include only Tylenol and Motrin. Evaluation in the emergency room on this visit showed a white count of 21.2, hematocrit of 34.8 with platelets 234,000, band form 6%. Chem profile showed normal electrolytes, bicarb was 22, glucose 139, lactic acid elevated at 4.1, calcium 9.0, total bilirubin 1.5. Liver enzymes normal including AST 29, ALT 17, alkaline phosphatase 66, albumin 3.2, lipase 44. Urinalysis is pending. REVIEW OF SYSTEMS: He does complain of some abdominal pain and distention, but main complaint is that of feeling an urge for bowel movement and unable to do that. A Tsang catheter was placed, which was somewhat challenging on the basis of urethral anatomic abnormalities, but a thin, very small Coude catheter was placed draining 100 mL of urine. A chest x-ray showed no evidence of effusion, pneumothorax, or other problem. Nasogastric tube tip lies in the decompressed stomach in the appropriate position. PHYSICAL EXAMINATION: GENERAL: This is an uncomfortable man. HEENT: Nasogastric tube is in place draining reasonably clear fluid, not with much bile. No blood particularly. NECK: Trachea is midline. CHEST: Shows no significant tachypnea. ABDOMEN: Distended. Tattoos are noted. There appears to be an umbilical hernia and he does have ascites. There is no leakage from his trocar sites that I can see. There is no erythema of the incisions. EXTREMITIES: Show no clubbing, cyanosis, or edema. LABORATORY STUDIES: As previously noted. ASSESSMENT: The patient has clinical appearance of sepsis for reasons that are uncertain. This includes relative hypotension with a systolic blood pressure of 84 and pulse of 107, ascites, elevated white count, elevated lactic acid. He has been given fluid administration including 3 L of crystalloid and another liter of lactated Ringer solution. Meropenem has been initiated. Electronically Signed By: RADHA WILLS MD 12/11/18 1116 PATIENT NAME: DAISY FRAZIER HISTORY AND PHYSICAL DATE OF : 80 REPORT #: [id number] PHYSICIAN: RADHA WILLS MD PCP: KISHOR SHAVER REPORT IS CONFIDENTIAL AND NOT TO BE RELEASED WITHOUT AUTHORIZATION [facility] [address], [place] [address] Signed I am planning to admit the patient to the intensive care unit. He may require pressor support depending on his blood pressure and response to fluids. He shows no evidence of a biloma and is not likely to have a cystic duct leak, though that is a possibility. His drain was only removed within the past 24 hours, which showed no bile leak whatsoever. His concurrent morbidity of advanced cirrhosis is notable though he does have preserved hepatic function. He previously had thrombocytopenia, now markedly elevated platelets, no doubt an acute phase reactant. A chest x-ray shows no sign of infiltrate or other abnormality to suggest pneumonia. Urinalysis is pending. It remains uncertain the source of the sepsis, but the dilated colon does not likely represent the source of the problem and he may require a paracentesis to better characterize the ascites fluid, which may further elucidate the underlying source of his problem. In particular, infected ascites fluid maybe part of the issue or a delayed bile leak another possibility. Aspiration of fluid for diagnosis would be likely helpful in that diagnosis and we will consider that soon. Whether or not a central venous catheter is needed will be determined. MD AYLEEN Rudolph/KP /[id number] cc: Jocelyn Alarcon [facility] Copies: ~ Electronically Signed By: RADHA WILLS MD 12/11/18 1116 PATIENT NAME: DAISY FRAZIER HISTORY AND PHYSICAL DATE OF : 80 REPORT #: [id number] PHYSICIAN: RADHA WILLS MD PCP: KISHOR SHAVER REPORT IS CONFIDENTIAL AND NOT TO BE RELEASED WITHOUT AUTHORIZATION
--- NOTE | 2018-12-11 12:21 | NUR ---
PATIENT LAYING IN BED IN HIGH FOWLERS POSITION. PO MEDICATIONS ADMINISTERED. PATIENT UP TO BEDSIDE COMMODE.
--- NOTE | 2018-12-11 13:49 | NUR ---
STAFF VERY BUSY CARING FOR PT-WILL CHECK BACK AGAIN
--- NOTE | 2018-12-11 15:43 | NUR ---
DR. WILLS CALLED TO UPDATE ON PATIENT. OKAY FOR PATIENT TO SHOWER IF HE DESIRES. UPDATED DR. WILLS ON PATIENT STATING EARLIER THAT HE WANTED TO GO BACK TO THE LONGTERM BECAUSE HE IS FRUSTRATED WITH THE SHACKLES AND THE CUFFS. EXPLAINED TO PATIENT THAT HE IS NEEDING TO BE HERE STILL AND NOT WELL ENOUGH TO D/C YET. NO FURTHER ORDERS REC'D. CONTINUE TO MONITOR.
--- NOTE | 2018-12-11 15:44 | NUR ---
PATIENT AMBULATED TO BEDSIDE COMMODE. PATIENT VOIDING WELL SINCE SALCEDO D/C'd. PATIENT STATES HE IS HAVING PAIN IN HIS LOWER ABDOMINAL INCISIONS. PRN PAIN MEDICATION PROVIDED. WHILE AMBULATING BACK TO BED THE CITY SUPERVISOR OBSERVED THAT THE PATIENTS SHACKLES AROUND HIS WAIST WERE LOOSE AND TIGHTENED THEM. THE PATIENT BECAME FRUSTRATED AND ASKED IF HE WAS ABLE TO LEAVE THE HOSPITAL AND GO BACK TO [facility]. PATIENT EDUCATED THAT IT WAS IMPORTANT FOR HIM TO REMAIN IN THE CCU TO CONTINUE RECEIVING TREATMENT, INCLUDING IV ABX. PATIENT AGREEABLE.
--- NOTE | 2018-12-11 17:17 | NUR ---
PATIENT GIVEN PRN NORCO DUE TO ABDOMINAL INCISION PAIN. PATIENT AMBULATED HALLWAY WITH POLICE ESCORT. HR ELEVATED TO 115'S BUT PATIENT STATES HE HAS NO DIZZINESS OR WEAKNESS. PATIENT AMBULATED BACK TO BEDSIDE CHAIR. GIVEN NEW GOWN, BRUSHED HIS TEETH AND WASHED HIS FACE. PATIENT DINNER ORDERED.
--- NOTE | 2018-12-11 18:32 | NUR ---
PATIENT REQUESTED DRUMMOND TRIM, WHICH WAS PROVIDED. PATIENTS SUTURES LEAKING SMALL AMOUNT OF SEROSANGUINOUS FLUID AND ARE REDRESSED AND REINFORCED WITH GAUZE. PATIENT AMBULATED TO RESTROOM TO VOID. RETURNED TO BEDSIDE CHAIR, DENIES ANY FURTHER NEEDS AT THIS TIME.
--- NOTE | 2018-12-11 19:30 | NUR ---
REPORT RC'D FROM DAY SHIFT STUDENT NURSE INDU. REPORTS LEVOPHED GTT DC'D, SALCEDO DC'D WITH GOOD OUTPUT, PAIN CONTROLLED WITH PRN NORCO, AFEBRILE, HR REMAINS LOW 100'S, AMBULATED CELESTIN, AND LEAKY ABD SITE. PT IN ROOM WITH GAURD AT BEDSIDE.
--- NOTE | 2018-12-11 20:20 | NUR ---
PT AAOX4, RESPONDING APPROPRIATELY AND PLEASANT. SINUS TACH ON MONITOR AND BP 129/80. LUNGS CLEAR THROUGHOUT, ON ROOM AIR, RR 17. BOWL TONES ACTIVE, SLIGHT ABD DISTENSION, PT STATES HE IS PASSING GAS, DENIES NAUSEA, STATES MULTIPLE BMS, LOWER SITE COVERED WITH GAUZE C/D/I, MID SITE OPEN TO AIR AND WNL, UPPER RIGHT SITE SECURED WITH TAPE AND SLIGHT CRUSTING, LOWER LATERAL RIGHT SITE COVERED WITH UROSTOMY BAG AND DRAINING SEROSANGUINEOUS FLUID. DENIES PAIN. VOIDING QS. RESTRAINTS IN PLACE AND MANAGED BY JAVI. IV SITE WNL, D5LR INFUSING AT 75 MLS/HR. REINFORCED SAFETY AND FALL PREVENTION. DENIES OTHER NEEDS.
--- NOTE | 2018-12-11 22:51 | NUR ---
PT AMBULATED TO BATHROOM TO VOID. PT NOW IN BED, GUARD REMAINS AT BEDSIDE. CALL LIGHT WITHIN REACH.
--- NOTE | 2018-12-11 23:07 | NUR ---
PT CALLED TO REPORT THAT HE WAS UNCOMFORABLE AND ANXIOUS ABOUT NOT BEING ABLE TO SLEEP. 1 TAB PRN NORCO GIVEN FOR ABDOMINAL INCISION PAIN. LIGHTS DIMMED AND PT ENCOURAGED TO RELAX AND TRY TO SLEEP.
--- NOTE | 2018-12-12 00:04 | NUR ---
ASSESSMENT UNCHANGED. PT RESTING IN BED WATCHING TV. DENIES PAIN. DENIES OTHER NEEDS. GAURD AT BEDSIDE.
--- NOTE | 2018-12-12 01:04 | NUR ---
CALL LIGHT ANSWERED, PT SBA TO RESTROOM, TOLERATED WELL. ASSISTED BACK TO BED, DENIES OTHER NEEDS. BENEDICT REMAINS AT BEDSIDE.
--- NOTE | 2018-12-12 03:14 | NUR ---
PT RESTING WITH EYES CLOSED, RESPIRATIONS EVEN AND UNLABORED. JAVI AT BEDSIDE.
--- NOTE | 2018-12-12 05:30 | NUR ---
NO ACUTE CHANGES TO ASSESSMENT. PT CONTINUE TO HAVE SEROSANGUINEOUS DRAINAGE FROM DC'D DEMARCO SITE. ALL OTHER SITES WNL. DENIES PAIN. JAVI AT BEDSIDE.
--- NOTE | 2018-12-12 06:43 | NUR ---
PT RESTED FOR LATER PART OF SHIFT. PAIN WELL CONTROLLED WITH PRN NORCO. OLD DEMARCO SITE REMAINS COVERED WITH UROSTOMY BAG, 1475 MLS OUT FOR LAST 24 HOURS, ALL OTHER LAP SITES UNCHANGED. AFEBRILE. REMAINS IN SINUS RHYTHM WITH HR IN 90'S. LUNGS CLEAR AND ON ROOM AIR. TOLERATING DIET. NO NAUSEA. 1 LIQUID BM FOR ANCIENT ART CURATOR.
--- NOTE | 2018-12-12 07:19 | NUR ---
PT CALLED, UP TO BATHROOM TO VOID 450ML CONCENTRATED URINE. PT NOW SITTING UP IN CHAIR. CALL LIGHT WITHIN REACH.
--- NOTE | 2018-12-12 08:50 | NUR ---
PT SLIGHTLY TEARFUL, AND EXPRESSES FRUSTRATION WITH SITUATION. PT STATES "I JUST WANT TO CHECK MYSELF OUT OF HERE". THIS RN EXPLAINED THE SERIOUSNESS OF SEPSIS IN DETAIL WITH PT. PT STATES HE UNDERSTANDS, HOWEVER IS STILL UPSET WITH OTHER FACTORS IN HIS LIFE. PT REPORTS 01/22 ABD INCISION PAIN, GIVEN NORCO FOR PAIN MANAGEMENT.
--- NOTE | 2018-12-12 13:10 | NUR ---
PATIENT AMBULATED TO ROOM 126 FOR SHOWER AND BACK TO ROOM 127 WITH GUARD ASSIST. CHANGED BED LINENS AND CLEANED EYE GLASSES. INCISION BELOW UMBILICUS WAS LEAKING SEROUS FLIUD. COVERED WITH GUAZE AND PAPER TAPE. PATIENT STATES INCISION IS TENDER BUT NOT REDDENED AND NO INCREASE IN HEAT. PATIENT DENIES PAIN. TOLERATED SHOWER AND AMBULATION WELL. SITTING IN CHAIR WATCHING TV WITH GUARD AT BEDSIDE. PATIENT UNDERSTOOD TO USE CALL LIGHT FOR ANY NEEDS OR TO INFORM GUARD. PATIENT HAD NO FURTHER QUESTIONS OR NEEDS.
--- NOTE | 2018-12-12 14:00 | NUR ---
PT WAS JUST TAKEN TO RM 126 FOR SHOWER WITH GUARD PRESENT. WILL CONTINUE TO FOLLOW
--- NOTE | 2018-12-12 14:49 | NUR ---
PATIENT AMBULATED TO BATHROOM AND URINATED IN URINAL. DENIES ANY DIZZINESS OR LIGHTHEADEDNESS. PATIENT STILL HAVING PAIN IN LOWER ABDOMEN AT INCISION SIGHT. PAIN MEDS WERE GIVEN. WILL REASSESS. PATIENT RECIEVED GOWN CHANGE AND DRESSING ASSOCIATE ORACLE RETAIL LOWER ABDOMINAL INCISION. PATIENT HAS NO OTHER NEEDS OR QUESTIONS.
--- NOTE | 2018-12-12 17:17 | NUR ---
PATIENT IS SITTING IN CHAIR AT BEDSIDE. PATIENT IS CONVERSATIONAL WITH NURSING STAFF AND GUARD IN THE ROOM. PATIENT STATES "I AM FEELING MUCH BETTER". PATIENT HAD NO QUESTIONS OR NEEDS. PATIENT IS INSTRUCTED TO USE CALL LIGHT FOR ASSISTANCE.
--- NOTE | 2018-12-12 18:34 | NUR ---
PATIENT REQUESTED TO GO TO THE BATHROOM 4 TIMES BEFORE 0900 BECAUSE OF DIARRHEA. SMALL AMOUNTS OF DIARRHEA IF ANY WERE PRESENT WHEN PATIENT WAS FINISHED. PATIENT WAS PAIN FREE FOR THE MORNING. AT 1200 PATIENT AMBULATED TO ROOM 126 FOR A SHOWER. PATIENT TOLERATED ACTIVITY WELL BUT WAS A LITTLE PAINFUL AFTER RETURNING BACK TO HIS ROOM AND SITTING IN THE CHAIR. THE BANDAGES COVERING OPERTATION INCISIONS WERE REMOVED BY DR. LAWRENCE JOHNSON TO SHOWER. AFTER SHOWER, INCISION SIGHTS STARTED LEAKING SEROUS FLIUD. INCISION SIGHTS REMAINED CLOSED. PATIENT HAS UROSTOMY BAG OVER DC'D DEMARCO DRAIN. PATIENT HAS HAD MODERATE AMOUNT OF SEROUSANGENOUS FLIUD FROM DC'D DEMARCO SIGHT. PATIENT HAS HAD SOME PAIN AFTER SHOWER AND INTO EVENING BUT WAS CONTROLLED WITH PRN 3/325 NORCO. PATIENT HAS NOT HAD ANY DIARRHEA SINCE THIS MORNING. STOOL SAMPLE IS ORDERED BUT PATIENT IS UNABLE TO PRODUCE ANY STOOL. BOWEL TONES ARE ACTIVE BUT PATIENT IS COMPLAINING THAT HE IS UNABLE TO PASS GAS OR ANY STOOL DESPITE FEELING LIKE HE NEEDS TO. PATIENT HAS BEEN INFORMED ON PLAN OF CARE AND DISEASE PROCESSES. PATIENT HAS NO OTHER QUESTIONS OR NEEDS. GUARD IS AT BEDSIDE WITH PATIENT.
--- NOTE | 2018-12-12 20:56 | NUR ---
PT RESTING IN BEDSIDE CHAIR, AOX4, APPROPRIATE, MAKER UP FOLDING AT BEDSIDE WELL, PT IN 4 POINT RESTRAINTS WITH BELLY CHAIN, LS CLEAR, ABD DISTENDED, SEROUS DRAINAGE NOTED ON OLD ABD BANDAGE AND LEAKING FROM SITES, NEW ABD PAD AND GAUZE BANDAGE APPLIED TO SITE BELOW UMBILICAL WELL ABOVE. DRAINAGE BAG NOTED TO HAVE SEROUS RED DRAINAGE 135 ML'S EMPTIED, PT DENIES ANY SIGNIFICANT PAIN AT THIS TIME, DENIES ANY SOB/CP, DENIES NAUSEA, PT'S CBG WNL, NO SS INSULIN PROVIDED PER ORDER, SEE EMAR. PT'S VSS, BP 133/89, HR 90'S, FRESH ICE WATER GIVEN PER REQUEST, IV SL, FLUSHES WELL. NO FURTHER REQUESTS AT THIS TIME, CALL LIGHT WITHIN REACH. GUARD REMAINS AT BEDSIDE.
--- NOTE | 2018-12-12 22:23 | NUR ---
PT UP FROM BEDSIDE CHAIR TO BED, IV ABX INFUSING PER EMAR WNL, PT C/O 01/22 PAIN IN ABDOMEN, PT GIVEN PRN PAIN MEDICATION PER EMAR, NO FURTHER NEEDS AT THIS TIME, CALL LIGHT WITHIN REACH. GUARD AT BEDSIDE.
--- NOTE | 2018-12-13 00:33 | NUR ---
PT RESTING IN BED, NO REQUESTS AT THIS TIME, DRAINAGE BAG EMPTIED, 175 MLS OF SEROSANGUINEOUS DRANAGE NOTED, PT'S VSS, IV ABX INFUSING PER EMAR WNL. CALL LIGHT WITHIN REACH. GUARD AT BEDSIDE.
--- NOTE | 2018-12-13 02:15 | NUR ---
PT RESTING IN BED, PT VOIDED 425 MLS OF DARK YELLOW URINE IN URINAL AT BEDSIDE, PT DENIES ANY NEEDS AT THIS TIME, GUARD REMAINS AT BEDSIDE, PT'S VSS, CALL LIGHT WITHIN REACH.
--- NOTE | 2018-12-13 04:00 | NUR ---
PT RESTING IN BED, EYES CLOSED, BREATHS EVEN, UNLABORED, NO REQUESTS AT THIS TIME, CALL LIGHT WITHIN REACH. FALL PRECAUTIONS IN PLACE. GUARD AT BEDSIDE.
--- NOTE | 2018-12-13 07:44 | NUR ---
PT APPEARS TO BE SLEEPING OFFICER AT THE BEDSIDE AT THIS TIME. IT HAS BEEN REPORTED THE PT DID NOT FALL ASLEEP TILL AROUND 04:00. THEREFORE WE WILL LET PT SLEEP SOME THIS AM.
--- NOTE | 2018-12-13 08:49 | NUR ---
DR GLOVER NOTIFIED OF LOW MAG RESULTS.
--- NOTE | 2018-12-13 09:27 | NUR ---
PT UP AND ABOUT IN THE ROOM C/O FEELING CONSPATED AT THIS TIME. HIS ABD APPEARS TO BE LARGER AND FIRMER THIS AM. HIS ABD CONTIOUES TO LEAK AND HAVE DRAINAGE FROM HIS SCOPE SITES. OFFICER REMAINS IN THE ROOM. PT WAS MADE HOUSE CONVIENCE THIS AM AT 09:00.
--- NOTE | 2018-12-13 09:37 | NUR ---
PATIENT WAS SLEEPING DURING MOST OF THE 0800 ASSESSMENT BUT WAS EASILY AROUSABLE AND COOPERATIVE. PATIENT REQUESTED TO GO TO THE BATHROOM BUT WAS ONLY ABLE TO URINATE AND STATED "I FEEL CONSTIPATED". PATIENT HAS NOT BEEN EATING GOOD MEALS BUT HAS BEEN ABLE TO PASS GAS. PATIENT AMBULATED BACK TO BED. CHANGED OUT DRESSING ON MEDIAL INCISION SIGHTS. PATIENT TOLERATED ACTIVITY WELL AND SAID "I WANT TO EAT SOMETHING, JUST NOT YET." PATIENT HAS FOOD FROM YESTERDAY HE WANTS TO EAT LATER. PATIENT HAS NO OTHER NEEDS OR QUESTIONS AT THIS TIME.
--- NOTE | 2018-12-13 12:01 | NUR ---
P UP TO THE BATHROOM VOIDED AND THEM UP TO THE CHAIR FOR LUNCH. HAD ORDER LUNCH ABOUT 30 MINUTES AGO AND JUST CALLED TO SEE WHERE IT WAS AND WHY IT WAS TAKING SO LONG.
--- NOTE | 2018-12-13 12:11 | NUR ---
PT REMAINS UP IN THE CAHIR EATING LUNCH AT THIS TIME.
--- NOTE | 2018-12-13 14:59 | NUR ---
PT REMAINS UP IN THE CHAIR THIS AFTERNOON. DENIES PAIN AT THIS TIME. PT DOES NOT WANT TO TAKE A SHOWER, BUT WILL WASH UP IN THE BATHROOM THE NEXT TIME HE USING THE RESTROOM. OFFICER REMAINS AT THIS THE BEDSIDE AT THIS TIME. PT HAS BEEN COOPERATIVE WITH HOSPITAL ROUTINE.
--- NOTE | 2018-12-13 16:00 | NUR ---
PT UP TO THE BATHROOM DID A COMPLETE BATH, ORAL CARE AND THEN PLACED WEE BAG OVER SURGICAL SITES THAT LEAK. THEN PT BACK TO BED.
--- NOTE | 2018-12-13 18:01 | NUR ---
PT SITTING UP IN BED TO EAT DINNER AT THIS TIME. OFFICER IN THE ROOM ALSO AT THIS TIME. SCOPE SITES CONTIOUE TO BE LEAKEY, BUT STAFF HAS PLACE WEE BAGS OVER THEM WHICH HAS HELP COLLECT THE FLUID. PT STATES HE IS "MORE COMFORTABLE WITH THE BAGS OVER THEM SO THAT HE IS NOT LEAKING ALL OVER THE PLACE."
--- NOTE | 2018-12-13 18:43 | NUR ---
PT C/O GAS PAIN, AND UNABLE TO HAD BM AT THIS TIME. THEREFORE HE REQUESTED STOOL MEDICATION THAT HE DID NOT WANT EARLY IN THE DAY. HE HAS WALKED IN THE UNIT THIS EVENING AND DID WELL WITH AMBULATION FROM ROOM 127 TO 130 X 2. CURRENTLY STANDING UP IN THE ROOM TO RELIVED PRESSOR FROM HIM FEELING CONSAPATED. PT IS COOPERATIVE WITH HOUSPITAL ROUTINE. AND IS PLEASENT WITH STAFF. HE CONTIOUES TO HAVE DRAINAGE FROM THE SCOPE SITE AND THEY ARE DRAINING INTO THE BAG SYSTEM THAT STAFF HAS APPLIED TO THEM. THEY ARE NOT LEAKING ONTO THE SUROUNDING TISSUE AT THIS TIME.
--- NOTE | 2018-12-13 19:49 | NUR ---
REPORT RECEIVED, PT UP WALKING IN THE HALLS WITH GUARD, PT DENIES ANY NEEDS AT THIS TIME. NO C/O SOB/CP, NO C/O LIGHT HEADEDNESS OR DIZZINESS.
--- NOTE | 2018-12-13 21:57 | NUR ---
NEW DRAINAGE BAGS APPLIED TO PT'S ABDOMEN, TOWEL PROVIDED WELL DUE TO EXCESS LEAKING, ABDOMINAL FLUID LEAKING IS SEROSANGUINEOUS, MOSTLY SEROUS, PT BACK TO BED, IV ABX INFUSING PER EMAR WNL, PT REPOSITIONED IN BED FOR COMFORT, PT DENIES NEED FOR PRN PAIN MEDICATION OR ANXIETY MEDICATION, PT DENIES ANY NEEDS AT THIS TIME, CBG 161, INSULIN COVERAGE PROVIDED PER SS PER EMAR, CALL LIGHT WITHIN REACH. GUARD REMAINS IN ROOM.
--- NOTE | 2018-12-13 23:00 | NUR ---
PT RESTING IN BED, WATCHING TV, NO REQUESTS AT THIS TIME, GUARD AT BEDSIDE. IV ABX INFUSING PER EMAR WNL, CALL LIGHT WITHIN REACH. FALL PRECAUIONS IN PLACE.
--- NOTE | 2018-12-14 00:24 | NUR ---
PT C/O ANXIETY, PT GIVEN PRN ANXIETY MED PER EMAR, PT DENIES ANY PAIN, NO FURTHER REQUESTS AT THIS TIME, CALL LIGHT WITHIN REACH.
--- NOTE | 2018-12-14 03:30 | NUR ---
PT UP TO BATHROOM WITH ALEJA MCCABE, PT VOIDED IN BSC WELL HAD A SMALL LOOSE BM, WAS UNABLE TO OBTAIN STOOL SAMPLE DUE TO PT VOIDING INTO THE SMALL BM, NEW DRAINAGE BAGS APPLIED TO THE PT'S ABDOMEN FOR LEAKING, PT TOLERATED WELL. CALL LIGHT WITHIN REACH.
--- NOTE | 2018-12-14 04:43 | NUR ---
PT RESTING IN BED, EYES CLOSED, BREATHS EVEN, UNLABORED, NO REQUESTS AT THIS TIME, CALL LIGHT WITHIN REACH. GUARD IN ROOM.
--- NOTE | 2018-12-14 06:20 | NUR ---
PT RESTING IN BED, EYES CLOSED, BREATHS EVEN, UNLABORED, NO REQUESTS AT THIS TIME, CALL LIGHT WITHIN REACH. GUARD AT BEDSIDE.
--- NOTE | 2018-12-14 09:29 | NUR ---
PT WAS UP TO THE BATHROOM, COMPLETED ADL'S ON HIS OWN AND THEN UP TO THE CHAIR. PT IS COOPERATIVE WITH HOSPITAL ROUTINE. PT GIVEN 1 NORCO FOR ABD PAIN.
--- NOTE | 2018-12-14 09:56 | NUR ---
DR GLOVER INTO SEE PT AT THIS TIME AND HAD TRANSFUSION CONSENT SIGNED.
--- NOTE | 2018-12-14 10:37 | NUR ---
RESUMING CARE OF THIS PATIENT. NEW IV TO BE PLACED. DR. BRAVO AND DR. GLOVER IN TO SEE PATIENT. PATIENT DENIES FURTHER NEEDS AT THIS TIME.
--- NOTE | 2018-12-14 11:17 | NUR ---
DR. BRAVO IN ROOM TO PERFORM PARACENTESIS. PATIENT SIGNS CONSENT FORM. PATIENT TO RECEIVE IV MAG AND IV ALBUMIN.
--- NOTE | 2018-12-14 13:06 | NUR ---
PATIENT UP TO VOID IN BATHROOM X 475 ML, CHRITSI IN COLOR URINE. PT NOW SITTING IN CHAIR EATING LUNCH. PARACENTESIS ATTEMPTED BY DR. BRAVO AROUND 1115 WITHOUT SUCCESS. PT RESTED IN BED AND NAPPED AFTER THAT. PT REMAINS COOPERATIVE AND PLEASANT. GUARD IN ROOM. CONTINUE TO MONITOR.
--- NOTE | 2018-12-14 16:29 | OR ---
[facility] [address], [place] [address] Signed DATE OF OPERATION: 12/14/2018 SURGEON: Martir Bravo MD PREOPERATIVE DIAGNOSES: 1. Liver failure with ascites. 2. Status post laparoscopic cholecystectomy. POSTOPERATIVE DIAGNOSES: 1. Liver failure with ascites. 2. Status post laparoscopic cholecystectomy. PROCEDURE PERFORMED: Paracentesis. ESTIMATED BLOOD LOSS: None. FINDINGS: No ascitic fluid was localized or withdrawn. INDICATIONS: Mamadou is a 38-year-old gentleman who was drinking large amounts of Tequila every day. He ended up in our [facility]. He had right upper quadrant abdominal pain and came to the local emergency room. He had a nodular liver along with sludge and cholelithiasis with a thickened gallbladder wall and a positive Sorensen sign. Around nine days ago, he had his laparoscopic cholecystectomy with Dr. Wills. A subhepatic drain was placed. He was doing fine. The drain had been withdrawn and he was sent back to the [facility]. He came back septic and was been on meropenem. He is now markedly improved. However, he has developed ascites and was leaking through the drain site and couple of his laparoscopic incisions. It is clear thin straw-colored fluid. He was not responding particularly well to the spironolactone and Lasix. His albumin is low at 2.6. I had been on crosscover as Dr. Wills is out of town. In the meantime, the ascitic culture came back negative. The blood cultures have been negative. The C diff is pending. His liver function tests actually are not bad and his INR is 1.8. I spoke with the medical records director at [facility] and [facility] as well as one of the liver surgeons. It seemed reasonable to go ahead and attempt a paracentesis to help draw some of the fluid and give some albumin as well. I had reviewed with Mamadou all these issues. I reviewed with him paracentesis in detail. Of course, there is risk including, but not limited to bleeding, infection, scarring, change in contour of the skin, infection of Electronically Signed By: MARTIR BRAVO MD 12/14/18 1629 PATIENT NAME: MAMADOU FRAZIER OPERATIVE REPORT DATE OF : 80 REPORT #: [id number] PHYSICIAN: MARTIR BRAVO MD PCP: KISHOR SHAVER REPORT IS CONFIDENTIAL AND NOT TO BE RELEASED WITHOUT AUTHORIZATION [facility] [address] [place], [place] [address] Signed the cystic fluid as well as bowel perforation and other unforeseen comorbidities. He expressed understanding and wished to proceed. DESCRIPTION OF PROCEDURE: Mamadou was kept supine in his ICU bed. His left abdominal wall was prepped and draped in the usual sterile fashion. We chose an area about midway between the left costal margin and the left iliac crest. We were skilled nursing between the midline of the abdomen and the side of the bed. Thus, we were lateral to the rectus sheath. The area was prepped and draped in the usual sterile fashion. Local anesthetic was injected in the skin and all the way through the abdominal wall. We slowly advanced our paracentesis needle and we never were able to find any fluid. We were clearly through the entire width of the abdominal wall. We did withdraw the needle from the catheter and even then we slowly withdrew the catheter and again no fluid was found. After two attempts, then we decided to abandon further attempts. Mamadou tolerated procedure quite well. RECOMMENDATIONS: Mamadou will be kept in the ICU with his now on p.o. antibiotics including the Cipro and Flagyl. We will go ahead and get his 25 g of albumin. We will add in Lasix along with the spironolactone. Triamterene is another option, but we do not have triamterene in and of itself here at the hospital. He has expressed understanding and agrees above plan. Martir Bravo MD ALB/MODL /[id number] cc: MD Radha Dacosta MD Copies: MARTIR BRAVO MD Electronically Signed By: MARTIR BRAVO MD 12/14/18 1629 PATIENT NAME: MAMADOU FRAZIER OPERATIVE REPORT DATE OF : 80 REPORT #: [id number] PHYSICIAN: MARTIR BRAVO MD PCP: KISHOR SHAVER REPORT IS CONFIDENTIAL AND NOT TO BE RELEASED WITHOUT AUTHORIZATION [address] [address] Signed RADHA WILLS MD ~ Electronically Signed By: MARTIR BRAVO MD 12/14/18 1629 PATIENT NAME: ALCANTARAMAMADOU WALDRON OPERATIVE REPORT DATE OF : 80 REPORT #: [id number] PHYSICIAN: MARTIR BRAVO MD PCP: KISHOR SHAVER REPORT IS CONFIDENTIAL AND NOT TO BE RELEASED WITHOUT AUTHORIZATION
--- NOTE | 2018-12-14 18:37 | NUR ---
PT AMBULATED TO THE BATHROOM, HAD BM AND VOIDED IN THE URINAL. PT THEN AMBULATED TO BED. BED IN LOW POSITION, CALL LIGHT WITHIN REACH AND SIDE RAILS X 2. FLOUR MIXER REMAINS AT THE BEDSIDE AT THIS TIME. PT IS IN 4 POINT SECURITY RESTRAINTS.
--- NOTE | 2018-12-14 20:20 | NUR ---
SHIFT ASSESSMENT WAS RECEIVED FROM ESTELLE PHELPS. PT CURRENTLY ASLEEP AT THIS TIME, RESPIRATIONS EVEN AND UNLABORED. GUARD AT BEDSIDE. WILL ALLOW FOR REST AND CONTINUE TO MONITOR.
--- NOTE | 2018-12-14 21:41 | NUR ---
ASSESSMENT COMPLETED, SEE DOCUMENTATION. PT UP TO BATHROOM, VOIDED AND HAD BM, SENNA HELD. OSTOMY APPLIANCES X3 TO ABDOMEN EMPTIED FOR TOTAL OF 60ML. IV PATENT, SL, DRESSING INTACT. RESTRAINTS TO ALL 4 EXREMITIES AND BELLY CHAIN, GUARD IN ROOM. PT NOW SITTING UP IN CHAIR. PRN ANXIETY MEDICATION PROVIDED, PT DENIES PAIN AT THIS TIME. CALL LIGHT WITHIN REACH.
--- NOTE | 2018-12-15 00:03 | NUR ---
PT CALLED TO REPORT 6/10 ABDOMINAL PAIN, 1 TAB NORCO GIVEN. ASSESSMENT COMPLETED, NO CHANGES FROM PREVIOUS ASSESSMENT. OSTOMY APPLIANCES EMPTIED OF 50ML SEROUS FLUID. DENIES NAUSEA. IV REMAINS WNL DRESSING INTACT. RESTAINTS X4 EXTREMITIES WITH BELLY CHAIN, CMS INTACT. GUARD IN ROOM. NO REQUESTS AT THIS TIME, CALL LIGHT WITHIN REACH.
--- NOTE | 2018-12-15 02:59 | NUR ---
PT APPEARS TO BE SLEEPING AT THIS TIME. RESPIRATIONS EVEN AND UNLABORED. NO APPARENT DISTRESS. WILL ALLOW FOR REST AND CONTINUE TO MONITOR.
--- NOTE | 2018-12-15 04:07 | NUR ---
PT UP TO BATHROOM TO VOID AND HAS NOW RETURNED TO BED. ASSESSMENT COMPLETED, NO CHANGES FROM PREVIOUS ASSESSMENT. PT DENIES PAIN AND NAUSEA. OSTOMY APPLIANCES EMPTIED FOR 130ML SEROUS FLUID. IV PATENT, SL, DRESSING INTACT. [facility] RESTRAINTS X4 EXTREMITIES AND BELLY CHAIN IN PLACE, CMS INTACT. NO REQUESTS AT THIS TIME, CALL LIGHT WITHIN REACH.
--- NOTE | 2018-12-15 08:19 | NUR ---
CRITICAL LAB VALUE RECEIVED- MAG LEVEL 1.0. DR. BRAVO CALLED AND ORDER REC'D TO GIVE 4 GM IV MAG AT THIS TIME. PATIENT'S BREAKFAST ORDERED WELL.
--- NOTE | 2018-12-15 10:04 | NUR ---
PT REQUESTING PAIN MEDICATION. MEDICATED WITH 2 NORCO FOR 01/22 PAIN
--- NOTE | 2018-12-15 10:51 | NUR ---
PATIENT AMBULATES TO AND FROM BATHROOM WITHOUT DIFFICULTY. PT DISCUSSES WITH THIS RN HOW HE IS FRUSTRATED THAT HE IS STILL IN HOSPITAL, AND HE WOULD LIKE TO GO BACK TO [facility] SOON HE CAN. HE IS FRUSTRATED THAT HE IS UNABLE TO TALK TO HIS FAMILY. PATIENT SHOWED HOW TO EMPTY HIS DRAIN BAGS THAT ARE DRAINING HIS LEAKING PERITONEAL FLUID. PATIENT CONTINUES TO DO WELL OTHERWISE. GUARD REMAINS AT BEDSIDE.
--- NOTE | 2018-12-15 12:30 | NUR ---
DR. BRAVO IN TO SEE PATIENT. PLAN TO RE CHECK AM LABS AND CHECK A MAG LEVEL AT 1999. PATIENT AWARE OF PLAN OF CARE. CONTINUE TO MONITOR.
--- NOTE | 2018-12-15 14:11 | NUR ---
PATIENT SLEEPING AT THIS TIME AND APPEARS COMFORTABLE WHILE SITTING IN CHAIR. RESPIRATIONS EVEN AND UNLABORED. GUARD REMAINS IN ROOM.
--- NOTE | 2018-12-15 14:34 | NUR ---
PATIENT REQUESTING A SNACK AT THIS TIME. PT HAS BEEN SITTING IN CHAIR, NAPPING. IV MAG DONE AND PATIENT SALINE LOCKED.
--- NOTE | 2018-12-15 16:33 | NUR ---
BED BATH GIVEN. PT MOVING WELL. PT'S WEIGHT 214.5 LB WITH METAL CUFFS ON. ABDOMINAL DRAINS EMPTIED FOR 200 ML. GUARD AT BEDSIDE.
--- NOTE | 2018-12-15 19:45 | NUR ---
Patient to bathroom with SBA, had soft brown BM, voided 50 ml concenrated urine. Now resting in bed again, denies further needs. Call light within reach, military professional at bedside.
--- NOTE | 2018-12-15 21:00 | NUR ---
Assessment done, patient is restful in bed, alert and oriented x4. HR 103, BP and other vitals WNL. Lungs are clear throughout, on room air, breathing is unlabored. Abdomen is mildly tender to palpation, lap sites x4 noted, 3 of the lap sites continue to have drainage, urostomy bags in place to collect fluid. IV site intact, saline locked. Patient denies needs at this time. Call light within reach, sap pp consultant at bedside.
--- NOTE | 2018-12-15 21:20 | NUR ---
Patient reports 7/10 pain in abdomen, 2 tabs PRN norco given. Denies further needs at this time, call light within reach, water operator at bedside.
--- NOTE | 2018-12-15 22:00 | NUR ---
Received telephone order from Dr. Barreto that if magnesium level is between 1.8 and 1.9, patient to receive 2 grams of IV magnesium, if level is 1.6 o 1.7, patient to receive 3 grams of IV magnesium, if less that 1.6, to receive 4 grams of IV magnesium.
--- NOTE | 2018-12-15 23:39 | NUR ---
Patient watching tv, states that pain is well controlled after norco administration, denies needs at this time. Call light within reach, security guards dispatcher at bedside.
--- NOTE | 2018-12-16 01:15 | NUR ---
Patient is resting with eyes closed, breathing is even and unlabored. call light within reach, security guard supervisor at bedside.
--- NOTE | 2018-12-16 03:19 | NUR ---
Patient is restful with eyes closed, breathing is even and unlabored, FLACC score of 0. Call light within reach, computer systems information director at bedside.
--- NOTE | 2018-12-16 04:17 | NUR ---
Assessment done, no acute changes from previous. Patient denies needs at this time, states that pain is well controlled, denies need for pain medication. Vitals WNL, call light within reach. guard immigration at bedside.
--- NOTE | 2018-12-16 06:45 | NUR ---
Patient reports 7/10 pain in abdomen, 2 tab norco given. Patient denies further needs at this time. 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
--- NOTE | 2018-12-16 07:56 | NUR ---
DR. BRAVO IN TO SEE PATIENT AT THIS TIME. PLAN IS FOR PATIENT TO D/C BACK TO NURSING HOME TODAY. PT ASKING GOOD QUESTIONS AND WANTING TO HAVE INFORMATION REGARDING HIS FURTHER CARE. CONTINUE TO MONITOR.
[2018-12-16] MEDS ORDERED: CIPRO500 MG PO (09:49)
[2018-12-16] MEDS ORDERED: FLAGYL500 MG PO (09:50)
[2018-12-16] MEDS ORDERED: SPIRONOLACTONE50 MG PO (09:59)
[2018-12-16] MEDS ORDERED: LASIX40 MG PO (10:00)
[2018-12-16] MEDS ORDERED: MAGNESIUM400 M1 PO (10:02)
[2018-12-16] MEDS ORDERED: SENOKOT-S TABL1 EACH PO (10:05)
[2018-12-16] MEDS ORDERED: NORCO 5-325 TA1 EACH PO (10:07)
[2018-12-16] MEDS ORDERED: GLUCOPHAGE500 MG PO (10:12)
--- NOTE | 2018-12-16 10:27 | NUR ---
PATIENT'S ABDOMINAL DRAINS CHANGED. 50 ML DRAINED FROM ALL THREE BAGS. NEW BAG PLACED ON RIGHT OLD DEMARCO DRAIN SITE ONLY, AND GAUZE AND PLACED OVER THE OTHER TWO LAP SITES, OVER THE RIGHT UPPER QUADRANT AND THE UMBILICUS. PATIENT GIVEN EDUCATION REGARDING HIS DIAGNOSIS, AND HIS MEDICATIONS AND WHAT TO WATCH FOR WHEN HE D/C.
--- NOTE | 2018-12-16 11:29 | NUR ---
LAP SITE ON RIGHT UPPER ABDOMEN LEAKING FLUIDS STILL, SOAKING GAUZE. COLOSTOMY BAG PLACED OVER THIS SITE. PT IS D/C BACK TO [facility] WITH 2 COLOSTOMY BAGS OVER HIS LEAKING PERITONEAL FLUID. DISCHARGE INSTRUCTIONS PROVIDED.
--- NOTE | 2018-12-16 11:47 | NUR ---
REPORT GIVEN TO NURSEKEE AT THE PRISON. PATIENT'S IV D/C PRIOR TO DISCHARGE, TIP INTACT. PT VOIDED JUST PRIOR TO LEAVING. WHEELCHAIR PROVIDED AND PATIENT ESCORTED WITH OFFICER TO CAR.
== END 2018-12-16 11:25 | disposition home or self-care (01) | DRG 872 ==
LOC: ED 21:14 → CCU 21:15 → ED 23:20 → CCU 23:20
PROVIDERS: ADMIT Colon & Rectal Surgery
PROC: 0W9G3ZZ Drainage of Peritoneal Cavity, Percutaneous Approach (ICD-10-PCS; principal; 2018-12-14)
DX: A41.9 Sepsis, unspecified organism (principal); R18.8 Other ascites; K72.90 Hepatic failure, unspecified without coma; K74.60 Unspecified cirrhosis of liver; I10 Essential (primary) hypertension; E11.9 Type 2 diabetes mellitus without complications; E87.6 Hypokalemia; E83.51 Hypocalcemia; E83.42 Hypomagnesemia; K59.00 Constipation, unspecified; D64.9 Anemia, unspecified; Z87.891 Personal history of nicotine dependence; Z90.49 Acquired absence of other specified parts of digestive tract; Z79.84 Long term (current) use of oral hypoglycemic drugs; Z79.899 Other long term (current) drug therapy
CPT/HCPCS: 36415; 51702; 71045; 74177; 78226; 80048; 80053; 81001; 82247; 82390; 82465; 83036; 83605; 83615; 83690; 83735; 84100; 84478; 84550; 85025; 85610; 85651; 85730; 86003; 86704; 86706; 86709; 86803; 86850; 86900; 86901; 87040; 87045; 87046; 87070; 87177; 87205; 87209; 87340; 87493; 93005; 93010; 96366; 96367; 96375; 96376; 99291; A9537; G0378; J0131; J0610; J1815; J1885; J2060; J2185; J2270; J2405; J3475; J3480; J7030; J7050; J7060; J7120; P9047; Q0177; Q9967